=== PATIENT | male | born 2000 | race Caucasian/White ===

== ENCOUNTER → 2019-01-20 | Emergency (ER) | payer OTHER ==
[~2019-01-20] VITALS: Ht 188 cm; Wt 122.0 kg
[~2019-01-20] MED LIST: HYDROCODONE/APAP (5/325) TAB PO ONE; NAPR-985 PO
[2019-01-20 07:02] VITALS: BP 155/85; PULSE 88; RESP 18; Ht 188 cm; Wt 122.0 kg
--- NOTE | 2019-01-20 08:13 | ERD ---
ER Documentation Chief Complaint Chief Complaint lt wrist pain s/p fall [place] @ [place] HPI 18-year-old male with previous history of left wrist fracture presents complaining of left wrist pain after falling on outst[place] hands [place] the [place]. Patient reports pain with range of motion of his left wrist. Has not been taking any pain medications for this. Denies any numbness or tingling of his hands or fingers. No abrasions or lacerations. No other injuries. Patient is right-hand dominant. ROS All systems reviewed and are negative except as per history of present illness. Medications Home Meds Active Scripts Naproxen* (Naprosyn*) 500 Mg Tablet, 500 MG PO BID PRN for PAIN AND/OR INFLAMMATION, #30 TAB Prov:RICARDO HOUSTON PA-C 01/20/19 Allergies Allergies: Coded Allergies: No Known Allergy (Unverified , 01/20/19) PMhx/Soc History of Surgery: Yes (tonsillectomy) Hx Miscellaneous Medical Probl: Yes (left arm - broken bones) Hx Alcohol Use: No Hx Substance Use: No Hx Tobacco Use: No Smoking Status: Never smoker Physical Exam Vitals Vital Signs Date Temp Pulse Resp B/P (MAP) Pulse Ox O2 O2 Flow FiO2 Time Delivery Rate 01/20/19 98.1 88 18 155/85 100 07:02 (108) Physical Exam Const: No acute distress Head: Atraumatic Eyes: Normal Conjunctiva ENT: Normal External Ears, Nose and Mouth. Neck: Full range of motion. No meningismus. Upper Extremity - left Skin: + Soft tissue swelling at the distal ulna and radius, no abrasions or lacerations. Compartments: Soft Motor: + Pain with range of motion of the shoulder. Full range of motion of the fingers. Sensation: Intact shoulder/pinky/middle finger/thumb web space Bones: +Moderate tenderness along the ulnar aspect of the left wrist Snuffbox: Nontender Joints: No effusion Pulses/Perfusion: 2+ radial, Capillary refill < 2 seconds Neur: Awake and alert Psych: Normal Mood and Affect Results 24 hrs Current Medications Medications Dose Sig/Nazario Start Time Status Last (Trade) Ordered Route PRN Stop Time Admin Dose Reason Admin 1 tab ONCE ONCE 01/20/19 DC 01/20/19 Acetaminophen PO 07:30 07:24 / 01/20/19 07:31 Hydrocodone Bitart ([place] ([id number])) Procedures/[facility]M LABS & DIAGNOSTIC IMAGING: PROCEDURE: XR Wrist. CLINICAL INDICATION: Left wrist pain following injury TECHNIQUE: AP, lateral and oblique views of the left wrist were performed. COMPARISON: No prior studies are available for comparison. FINDINGS: The osseous structures demonstrate normal alignment and mineralization. No acute fracture or dislocation is seen. The joint spaces are well preserved. No osseous erosions are identified. The soft tissues are unremarkable. IMPRESSION: Unremarkable left wrist x-ray series. PROCEDURES: Volar wrist Splint Assessment: Neurovascularly intact post splint placement with good fit. ED COURSE: The patient was given p.o. [place] The medication was well tolerated and the patient had market improvement in symptoms. The patient remained stable throughout ED course. MEDICAL DECISION MAKING: This is a 18-year-old male who presents with left wrist injury status post fall on outstretched hands yesterday. X-rays negative for any acute fracture dislocation. Patient has no evidence of neurovascular injury, tendon injury, open fracture, or compartment syndrome. She likely sustained a sprain. He was placed in a volar wrist splint for comfort. Given naproxen for pain relief and referral to orthopedist for any continued pain. Strict return precautions were discussed. PRESCRIPTIONS: Naproxen SPECIALIST FOLLOW UP RECOMMENDED: None Departure Diagnosis: Primary Impression: Left wrist sprain Encounter type: initial encounter Qualified Codes: S63.502A - Unspecified sprain of left wrist, initial encounter Condition: Stable Patient Instructions: Wrist Sprain Referrals: [facility] [place] YOU HAVE RECEIVED A MEDICAL SCREENING EXAM AND THE RESULTS INDICATE THAT YOU DO NOT HAVE A CONDITION THAT REQUIRES URGENT TREATMENT IN THE EMERGENCY DEPARTMENT. FURTHER EVALUATION AND TREATMENT OF YOUR CONDITION CAN WAIT UNTIL YOU ARE SEEN IN YOUR DOCTORS OFFICE WITHIN THE NEXT 1-2 DAYS. IT IS YOUR RESPONSIBILITY TO MAKE AN APPOINTMENT FOR FOLOW-UP CARE. IF YOU HAVE A PRIMARY DOCTOR --you should call your primary doctor and schedule and appointment IF YOU DO NOT HAVE A PRIMARY DOCTOR YOU CAN CALL OUR PHYSICIAN REFERRAL HOTLINE AT . IF YOU CAN NOT AFFORD TO SEE A PHYSICIAN YOU CAN CHOSE FROM THE FOLLOWING [facility] INSTITUTIONS: [facility] [id number] [place] [address] [facility] [address] [place] [address] [facility] + [address] [place] [address] [facility] 7 a.m.- 11 p.m. Every Day of the Week NO APPOINTMENT OR AUTHORIZATION NEEDED Additional Instructions: Take the naproxen for the next 2 days. Wear the Velcro wrist splint for the next week. You can follow-up with an orthopedist if he continued to have pain in 1 week. Return here for any new or worsening symptoms. RICARDO HOUSTON PA-C Jan 20, 2019 08:13
== END | disposition home or self-care (01) ==
LOC: FTE 06:56
DX: S63.502A Unspecified sprain of left wrist, initial encounter (principal); W18.39XA Other fall on same level, initial encounter; Y92.832 Beach as the place of occurrence of the external cause
CPT/HCPCS: 29125; 73110; Z7610

== ENCOUNTER 2019-01-26 09:42 | Emergency (ER) | payer OTHER ==
[~2019-01-26] VITALS: Ht 175.3 cm; Wt 100.0 kg
[~2019-01-26 09:42] MED LIST changes: -HYDROCODONE/APAP (5/325) TAB PO ONE
[2019-01-26 09:47] VITALS: BP 134/78; PULSE 90; RESP 18; Ht 175.3 cm; Wt 100.0 kg
== END 2019-01-26 10:50 | disposition home or self-care (01) ==
LOC: FTE 09:42
DX: M25.532 Pain in left wrist (principal)
CPT/HCPCS: 99282